=== PATIENT | female | born 1995 | race American Indian/Alaskan Native ===

== ENCOUNTER 2017-02-22 04:14 | Emergency (ER) | payer SELFPAY ==
[2017-02-22 04:37] VITALS: BP 122/73; PULSE 98; RESP 16; TEMP 97.5; O2SAT 100
--- NOTE | 2017-02-22 04:54 | ED PDOC ---
Lower Extremity Pain/Injury Time Seen by Provider: 02/22/17 04:39 Chief Complaint (Nursing): Abnormal Skin Integrity Chief Complaint (Provider): left leg injury History Per: Patient (21 y/o female here with left leg injury that occurred when she accidentally struck uneven edge of broken soap dish. Patient has had vaccines up dated at 18 for college. Believes up to date on tdap.) Past Medical History Reviewed: Historical Data, Nursing Documentation, Vital Signs Vital Signs: Last Vital Signs Temp 97.5 F L 02/22/17 04:35 Pulse 98 H 02/22/17 04:35 Resp 16 02/22/17 04:35 BP 122/73 02/22/17 04:35 Pulse Ox 100 02/22/17 04:35 - Family History Family History: States: Unknown Family Hx - Immunization History Hx Tetanus Toxoid Vaccination: No Hx Influenza Vaccination: No Hx Pneumococcal Vaccination: No - Home Medications Home Medications: Ambulatory Orders Medication Instructions Recorded Naproxen [Naprosyn] 500 mg PO BID PRN #20 tablet 10/19/16 - Allergies Allergies/Adverse Reactions: Allergies Allergy/AdvReac Type Severity Reaction Status Date / Time No Known Allergies Allergy Verified 02/22/17 04:34 Review of Systems ROS Statement: Except As Marked, All Systems Reviewed And Found Negative Physical Exam - Reviewed Nursing Documentation Reviewed: Yes Vital Signs Reviewed: Yes - Physical Exam Appears: Positive for: Well, Non-toxic, No Acute Distress Head Exam: Positive for: ATRAUMATIC, NORMAL INSPECTION, NORMOCEPHALIC Skin: Positive for: Normal Color, Warm, DRY Eye Exam: Positive for: EOMI, Normal appearance, PERRL ENT: Positive for: Normal ENT Inspection Neck: Positive for: Normal, Painless ROM Cardiovascular/Chest: Positive for: Regular Rate, Rhythm Respiratory: Positive for: CNT, Normal Breath Sounds Gastrointestinal/Abdominal: Positive for: Normal Exam, Bowel Sounds, Soft Back: Positive for: Normal Inspection Extremity: Positive for: Normal ROM, Other (1.5 cm laceration above left knee by thigh) Neurologic/Psych: Positive for: Alert, Oriented - ECG O2 Sat by Pulse Oximetry: 100 Disposition - Clinical Impression Clinical Impression: Thigh laceration - Patient ED Disposition Is Patient to be Admitted: No - Disposition Disposition: Routine/Home Disposition Time: 04:55 Condition: FAIR Additional Instructions: RETURN TO ED OR F/U WITH PMD IN 10 DAYS FOR REMOVAL OF SUTURES. Instructions: Laceration (ED) Forms: [facility] ED School/Work Excuse Procedure: Wound Repair - Time Performed Time Performed: 04:54 - Time Out Time Out: Site verified - Consent Obtained Consent obtained: Verbal - Performed by Performed by: Mid-level Provider - Indications Indication(s):: Laceration - Location Location:: Left, Thigh Shape:: Linear Dimensions Length cm: 1.5 Depth:: Epidermis - Anesthetic Technique Local/Regional Anesthetic:: Lidocaine 2% w/epi - Complexity Complexity:: Simple (one layer) - Wound repair method Sutures:: # (three), Size (3-0), Type (prolene), Technique (interrupted) - Patient tolerated procedure Patient Tolerated Procedure:: Well
== END 2017-02-22 05:07 | disposition home or self-care (01) ==
LOC: H.ER 04:14
DX: S71.112A Laceration without foreign body, left thigh, initial encounter (principal); W22.8XXA Striking against or struck by other objects, initial encounter; Y92.002 Bathroom of unspecified non-institutional (private) residence as the place of occurrence of the external cause

== ENCOUNTER 2017-08-04 08:25 | Emergency (ER) | payer MEDICAID ==
[2017-08-04 08:30] VITALS: BP 130/76; O2SAT 98; BMI 37.8
[2017-08-04 08:47] VITALS: PULSE 99; RESP 18; TEMP 99
--- NOTE | 2017-08-04 09:09 | ED PDOC ---
HPI: CCC, URI, Sore Throat Time Seen by Provider: 08/04/17 08:52 Chief Complaint (Nursing): ENT Problem Chief Complaint (Provider): Sore Throat History Per: Patient History/Exam Limitations: no limitations Onset/Duration Of Symptoms: Days (x2) Current Symptoms Are (Timing): Still Present Additional Complaint(s): Tariq Jain is a 22 year old female presenting to the ED for an evaluation of a sore throat occurring for 2 days and a fever occurring yesterday. The patient states she took Tylenol yesterday and experiences painful swallowing. She denies vomiting. PMD: None Provided Past Medical History Reviewed: Historical Data, Nursing Documentation, Vital Signs Vital Signs: Last Vital Signs Temp 99.0 F 08/04/17 08:42 Pulse 99 H 08/04/17 08:42 Resp 18 08/04/17 08:42 BP 130/76 08/04/17 08:42 Pulse Ox 98 08/04/17 08:42 - Medical History PMH: No Chronic Diseases - Surgical History Surgical History: No Surg Hx - Family History Family History: States: Unknown Family Hx - Social History Current smoker - smoking cessation education provided: Yes Alcohol: Social Drugs: Denies - Immunization History Hx Tetanus Toxoid Vaccination: No Hx Influenza Vaccination: No Hx Pneumococcal Vaccination: No - Home Medications Home Medications: Ambulatory Orders Medication Instructions Recorded Naproxen [Naprosyn] 500 mg PO BID PRN #20 tablet 10/19/16 - Allergies Allergies/Adverse Reactions: Allergies Allergy/AdvReac Type Severity Reaction Status Date / Time No Known Allergies Allergy Verified 02/22/17 04:34 Review of Systems ROS Statement: Except As Marked, All Systems Reviewed And Found Negative Constitutional: Positive for: Fever ENT: Positive for: Throat Pain (sore throat) Gastrointestinal: Negative for: Vomiting Physical Exam - Reviewed Nursing Documentation Reviewed: Yes Vital Signs Reviewed: Yes - Physical Exam Appears: Positive for: Non-toxic, No Acute Distress (speaking full sentences) Head Exam: Positive for: ATRAUMATIC, NORMOCEPHALIC ENT: Positive for: Tonsillar Exudate, Tonsillar Swelling (bilateral tonsillar hypertrophy), Other (uvula midline; no drooling) Neck: Positive for: Normal, Supple Respiratory: Negative for: Respiratory Distress Neurologic/Psych: Positive for: Alert, Oriented - ECG O2 Sat by Pulse Oximetry: 98 (RA) Pulse Ox Interpretation: Normal Medical Decision Making Medical Decision Making: Time: 08:52 Impression: Sore Throat with fever Plan: * ED Urine (POC) * Decadron Inj 10 mg IM * Zithromax 500 mg PO * Reevaluation Scribe Attestation: Documented by Nataliya Veliz, acting as a scribe for Staci Mera MD. Provider Scribe Attestation: All medical record entries made by the Scribe were at my direction and personally dictated by me. I have reviewed the chart and agree that the record accurately reflects my personal performance of the history, physical exam, medical decision making, and the department course for this patient. I have also personally directed, reviewed, and agree with the discharge instructions and disposition. Disposition - Disposition
== END 2017-08-04 11:30 | disposition home or self-care (01) ==
LOC: H.ER 08:25
DX: J02.9 Acute pharyngitis, unspecified (principal); R50.9 Fever, unspecified
CPT/HCPCS: 81025; 96372; 99282; J1100

== ENCOUNTER 2019-01-28 13:01 | Emergency (ER) | payer MEDICAID ==
[2019-01-28 13:12] VITALS: BMI 40.0
[2019-01-28] MEDS ORDERED: Lidocaine 1% Inj (20ml) IJ ONE (14:17)
[2019-01-28] MEDS ORDERED: Oxycodone/Acetaminophen 5/325 mg Tab PO STA (14:18)
[2019-01-28] MEDS ORDERED: Lidocaine 1% Inj (20ml) ONE (14:28)
[2019-01-28] MEDS ORDERED: Oxycodone/Acetaminophen 5/325 mg Tab ONE (14:28)
--- NOTE | 2019-01-28 14:54 | ED PDOC ---
HPI: Skin/Bite Injury Time Seen by Provider: 01/28/19 13:20 Chief Complaint (Nursing): Abnormal Skin Integrity Chief Complaint (Provider): Abnormal Skin Integrity History Per: Patient History/Exam Limitations: no limitations Onset/Duration Of Symptoms: Days (x2) Current Symptoms Are (Timing): Still Present Quality Of Symptoms: Painful, Swollen Additional Complaint(s): 23 year old female presents to the ED with 2 days of pain and swelling to the upper buttock. Patent denies any fever and chills. PMD: none provided Past Medical History Reviewed: Historical Data, Nursing Documentation, Vital Signs Vital Signs: Last Vital Signs Temp 98.1 F 01/28/19 13:12 Pulse 85 01/28/19 13:12 Resp 18 01/28/19 13:12 BP 131/81 01/28/19 13:12 Pulse Ox 99 01/28/19 13:12 - Family History Family History: States: Unknown Family Hx - Immunization History Hx Tetanus Toxoid Vaccination: No Hx Influenza Vaccination: No Hx Pneumococcal Vaccination: No - Home Medications Home Medications: Ambulatory Orders Medication Instructions Recorded Naproxen [Naprosyn] 500 mg PO BID PRN #20 tablet 10/19/16 Azithromycin [Zithromax] 500 mg PO DAILY #4 tab 08/04/17 Naproxen [Naprosyn] 500 mg PO BID PRN #15 tablet 08/04/17 Docusate Sodium [Colace] 100 mg PO BID #10 capsule 01/28/19 Doxycycline Hyclate 100 mg PO BID #14 capsule 01/28/19 oxyCODONE/Acetaminophen [Percocet 1 ea PO Q8 #15 tab 01/28/19 5/325 mg Tab] - Allergies Allergies/Adverse Reactions: Allergies Allergy/AdvReac Type Severity Reaction Status Date / Time No Known Allergies Allergy Verified 01/28/19 13:11 Review of Systems ROS Statement: Except As Marked, All Systems Reviewed And Found Negative Constitutional: Negative for: Fever, Chills Genitourinary Female: Positive for: Other (pain and swelling to upper buttock) Physical Exam - Reviewed Nursing Documentation Reviewed: Yes Vital Signs Reviewed: Yes - Physical Exam Appears: Positive for: Well, Non-toxic, No Acute Distress Skin: Positive for: Normal Color, Warm, Dry Gastrointestinal/Abdominal: Positive for: Soft. Negative for: Tenderness Back: Positive for: Other (tenderness and swelling with fluctuance and indurate to the left of gluteal cleft) Extremity: Positive for: Normal ROM (Buttock: (+) swelling and tenderness with (+) fluctuance to the left gluteal cleft and mild surrounding induration) Neurological/Psych: Positive for: Awake, Alert, Oriented - ECG O2 Sat by Pulse Oximetry: 99 (RA) Pulse Ox Interpretation: Normal Medical Decision Making Medical Decision Making: Time: 7 Plan: --Percocet --U preg Procedure: --Wound was packed with 1 inch packing, bulky dry sterile dressing was placed. Time: 1450 --Patient prescribed doxycycline and advised to apply warm compress. Patient told to return to this ED in 2 days for wound check and packing removal. Scribe Attestation: Documented by Maria E Veliz acting as a scribe for Veronica East PA-C. Provider Scribe Attestation: All medical record entries made by the Scribe were at my direction and personally dictated by me. I have reviewed the chart and agree that the record accurately reflects my personal performance of the history, physical exam, medical decision making, and the department course for this patient. I have also personally directed, reviewed, and agree with the discharge instructions and disposition. Disposition - Clinical Impression Clinical Impression: Pilonidal abscess of justin cleft - Patient ED Disposition Is Patient to be Admitted: No - Disposition Disposition: Routine/Home Disposition Time: 16:24 Condition: STABLE Additional Instructions: warm compresses to area. take antibiotics. wound check and packing removal in 2 dyas, return to ED. Prescriptions: Docusate Sodium [Colace] 100 mg PO BID #10 capsule Doxycycline Hyclate 100 mg PO BID #14 capsule oxyCODONE/Acetaminophen [Percocet 5/325 mg Tab] 1 ea PO Q8 #15 tab Instructions: Pilonidal Cyst (DC) Forms: [employer] ([place]), [facility] ED School/Work Excuse Procedure: Wound Repair - Performed by Performed by: Mid-level Provider - Location Location:: Buttock - Anesthetic Technique Local/Regional Anesthetic:: Lidocaine 1% - Debris Debris:: None
[2019-01-28 16:38] VITALS: BP 122/60; PULSE 78; RESP 19; TEMP 98
[2019-01-28 16:53] VITALS: O2SAT 99
== END 2019-01-28 16:37 | disposition home or self-care (01) ==
LOC: H.ER 13:01
DX: Z48.00 Encounter for change or removal of nonsurgical wound dressing (principal); L05.01 Pilonidal cyst with abscess

== ENCOUNTER 2019-02-28 10:06 | Emergency (ER) | payer MEDICAID ==
[2019-02-28 10:09] VITALS: BMI 38.7
[2019-02-28 10:10] VITALS: O2SAT 99
[2019-02-28] MEDS ORDERED: LIDOCAINE 2% 10ML 20 MG/ML VIAL IJ STA (10:30)
[2019-02-28] MEDS ORDERED: Lidocaine 2% MPF (5 ml) Inj INJ STA (10:41)
[2019-02-28] MEDS ORDERED: Lidocaine 2% MPF (5 ml) Inj ONE (10:42)
[2019-02-28] MEDS ORDERED: Lidocaine 2% MPF (5 ml) Inj INFIL STA (11:12)
--- NOTE | 2019-02-28 11:48 | ED PDOC ---
HPI: Skin/Bite Injury Time Seen by Provider: 02/28/19 10:22 Chief Complaint (Nursing): Abnormal Skin Integrity Chief Complaint (Provider): Abnormal Skin Integrity History Per: Patient History/Exam Limitations: no limitations Additional Complaint(s): Patient is a 23 year old female with no past medical history, who presents to the emergency department complaining of lower back pain and concern for the redevelopment of her pilonidal cyst. She was seen x1 month ago and had an I&D of her pilonidal cyst. The wound was packed but she admits to not following up as instructed and taking the pack out herself. 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 She believes the prolonged sitting is causing her discomfort. Patient denies having any fevers. PMD: No provider Past Medical History Reviewed: Historical Data, Nursing Documentation, Vital Signs Vital Signs: Last Vital Signs Temp 98.5 F 02/28/19 10:09 Pulse 77 02/28/19 10:09 Resp 18 02/28/19 10:09 BP 126/79 02/28/19 10:09 Pulse Ox 99 02/28/19 10:09 - Medical History PMH: No Chronic Diseases - Surgical History Surgical History: No Surg Hx - Family History Family History: States: Unknown Family Hx - Immunization History Hx Tetanus Toxoid Vaccination: No Hx Influenza Vaccination: No Hx Pneumococcal Vaccination: No - Home Medications Home Medications: Ambulatory Orders Medication Instructions Recorded Naproxen [Naprosyn] 500 mg PO BID PRN #20 tablet 10/19/16 Azithromycin [Zithromax] 500 mg PO DAILY #4 tab 08/04/17 Naproxen [Naprosyn] 500 mg PO BID PRN #15 tablet 08/04/17 Docusate Sodium [Colace] 100 mg PO BID #10 capsule 01/28/19 Doxycycline Hyclate 100 mg PO BID #14 capsule 01/28/19 oxyCODONE/Acetaminophen [Percocet 1 ea PO Q8 #15 tab 01/28/19 5/325 mg Tab] Clindamycin [Cleocin] 300 mg PO TID #21 cap 02/28/19 traMADol [Ultram] 50 mg PO TID PRN #12 tab 02/28/19 - Allergies Allergies/Adverse Reactions: Allergies Allergy/AdvReac Type Severity Reaction Status Date / Time No Known Allergies Allergy Verified 01/28/19 13:11 Review of Systems ROS Statement: Except As Marked, All Systems Reviewed And Found Negative Constitutional: Negative for: Fever Musculoskeletal: Positive for: Back Pain Physical Exam - Reviewed Nursing Documentation Reviewed: Yes Vital Signs Reviewed: Yes - Physical Exam Appears: Positive for: Non-toxic, No Acute Distress Cardiovascular/Chest: Positive for: Regular Rate, Rhythm. Negative for: Murmur, Tachycardia Respiratory: Positive for: Normal Breath Sounds. Negative for: Respiratory Distress Back: Positive for: Other (gluteal cleft: (+) area of tenderness and fluctuance approximately 3 cm; (-) tenderness in either gluteus kinsey). Negative for: Ve rtebral Tenderness (lumbar spinal tenderness ) Neurological/Psych: Positive for: Alert, Oriented, Gait (steady). Negative for: Motor/Sensory Deficits - ECG O2 Sat by Pulse Oximetry: 99 (RA) Pulse Ox Interpretation: Normal - Progress ED Course And Treament: --Verbal consent obtained. --5 ml Lidocaine 2% infiltrated after sterilization with chlorhexidine. --Size 11 blade was used for 1.5 cm incision with copious amount of pustulent material returned. --Wound was irrigated and sterile packing placed. --Cultures obtained. --Initiating clindamycin pending cultures. Given outpatient referral for recurrent pilonidal cysts. Patient may require marsupialization Medical Decision Making Medical Decision Making: Time: 1041 Impression: Recurrent pilonidal cyst Plan: Plan for I&D --Lidocaine --Wound culture Scribe Attestation: Documented by Elie Luciano, acting as a scribe Hudson Pelayo III, DO. Provider Scribe Attestation: All medical record entries made by the Scribe were at my direction and personally dictated by me. I have reviewed the chart and agree that the record accurately reflects my personal performance of the history, physical exam, medical decision making, and the department course for this patient. I have also personally directed, reviewed, and agree with the discharge instructions and disposition. Disposition - Clinical Impression Clinical Impression: Pilonidal abscess - Patient ED Disposition Is Patient to be Admitted: No Counseled Patient/Family Regarding: Studies Performed, Diagnosis, Need For Followup, Rx Given - Disposition Referrals: Ming Gracia MD [Staff Provider] - Disposition Time: 11:15 Condition: STABLE Additional Instructions: RETURN IN 2 DAYS FOR PACKING REMOVAL AND WOUND CHECK. TAKE ANTIBIOTICS DIRECTED. RETURN TO ER EARLIER FOR ANY FEVER, WEAKNESS, WORSE PAIN OR HEAVY BLEEDING. SMALL AMOUNT OF BLOOD AND FLUID/DISCHARGE FROM WOUND SITE IS EXPECTED FOR NEXT 1-2 DAYS. DO NOT IMMERSE AREA IN WATER UNTIL PACKING IS REMOVED. Prescriptions: Clindamycin [Cleocin] 300 mg PO TID #21 cap traMADol [Ultram] 50 mg PO TID PRN #12 tab PRN Reason: Pain, Moderate (4-7) Instructions: Pilonidal Cyst, Abscess Incision and Drainage (DC) Forms: [employer] ([place]), [facility] ED School/Work Excuse
[2019-02-28 11:55] VITALS: BP 111/62; PULSE 94; RESP 16; TEMP 98.7
== END 2019-02-28 11:39 | disposition home or self-care (01) ==
LOC: H.ER 10:06
DX: L05.01 Pilonidal cyst with abscess (principal)

== ENCOUNTER 2019-03-06 06:39 | Emergency (ER) | payer MEDICAID ==
[2019-03-06 06:39] VITALS: BMI 38.7
[2019-03-06 07:18] VITALS: RESP 16
--- NOTE | 2019-03-06 08:25 | ED PDOC ---
HPI: Wound Care - HPI Time Seen by Provider: 03/06/19 07:06 Chief Complaint (Nursing): Wound Check Chief Complaint (Provider): Wound check History Per: Patient Exam Limitations: no limitations Additional Complaint(s): 23yo female, returns to ER for a wound check. She was seen here on 02/28 and had an I&D procedure done for a pilonidal cyst; patient was instructed to follow up 5 days ago however failed to do so and presents today. She otherwise denies any pain, fever, chills, and offers no additional complaints. Past Medical History Reviewed: Historical Data, Nursing Documentation, Vital Signs Vital Signs: Last Vital Signs Temp 98.8 F 03/06/19 07:15 Pulse 75 03/06/19 07:15 Resp 16 03/06/19 07:15 BP 117/79 03/06/19 07:15 Pulse Ox 97 03/06/19 07:15 - Medical History PMH: No Chronic Diseases - Surgical History Surgical History: No Surg Hx - Family History Family History: States: Unknown Family Hx - Immunization History Hx Tetanus Toxoid Vaccination: No Hx Influenza Vaccination: No Hx Pneumococcal Vaccination: No - Home Medications Home Medications: Ambulatory Orders Medication Instructions Recorded Naproxen [Naprosyn] 500 mg PO BID PRN #20 tablet 10/19/16 Azithromycin [Zithromax] 500 mg PO DAILY #4 tab 08/04/17 Naproxen [Naprosyn] 500 mg PO BID PRN #15 tablet 08/04/17 Docusate Sodium [Colace] 100 mg PO BID #10 capsule 01/28/19 Doxycycline Hyclate 100 mg PO BID #14 capsule 01/28/19 oxyCODONE/Acetaminophen [Percocet 1 ea PO Q8 #15 tab 01/28/19 5/325 mg Tab] Clindamycin [Cleocin] 300 mg PO TID #21 cap 02/28/19 traMADol [Ultram] 50 mg PO TID PRN #12 tab 02/28/19 - Allergies Allergies/Adverse Reactions: Allergies Allergy/AdvReac Type Severity Reaction Status Date / Time No Known Allergies Allergy Verified 03/06/19 07:14 Review of Systems Constitutional: Negative for: Fever, Chills Skin: Positive for: Other (healing pilonidal cyst s/p I&D) Physical Exam - Reviewed Nursing Documentation Reviewed: Yes Vital Signs Reviewed: Yes - Physical Exam Appears: Positive for: No Acute Distress Skin: Positive for: Normal Color Eye Exam: Positive for: Normal appearance Neck: Positive for: Supple Cardiovascular/Chest: Negative for: Tachycardia Respiratory: Negative for: Respiratory Distress Rectal: Positive for: Other (incision to midline upper buttock area; packing removed; no irritation, induration or erythema noted. no signs of infection.) Extremity: Positive for: Normal ROM Neurological/Psych: Positive for: Awake, Alert, Oriented (x3) - ECG O2 Sat by Pulse Oximetry: 97 (RA) Pulse Ox Interpretation: Normal Medical Decision Making Medical Decision Making: Impression: 23yo female presents for wound care Plan: -- Patient with well healing incision Packing removed without difficulty. Instructed on further wound care and maintenance; stable for discharge home. Scribe Attestation: Documented by Candelaria English acting as a scribe for Staci Mera MD. Provider Attestation: All medical record entries made by the Scribe were at my direction and personally dictated by me. I have reviewed the chart and agree that the record accurately reflects my personal performance of the history, physical exam, medical decision making, and the department course for this patient. I have also personally directed, reviewed, and agree with the discharge instructions and disposition. Disposition - Clinical Impression Clinical Impression: Encounter for wound re-check - Disposition Referrals: [facility] [Outside] Disposition: Routine/Home Disposition Time: 08:39 Condition: GOOD Instructions: Pilonidal Cyst Forms: [employer] ([place])
[2019-03-06 09:00] VITALS: BP 118/74; PULSE 72; TEMP 98.1
[2019-03-07 10:41] VITALS: O2SAT 97
== END 2019-03-06 08:45 | disposition home or self-care (01) ==
LOC: H.ER 06:39
DX: Z48.01 Encounter for change or removal of surgical wound dressing (principal)